=== PATIENT | male | born 1960 | race Caucasian/White ===

== ENCOUNTER → 2016-08-23 | Outpatient (CLI) | payer OTHER ==
[~2016-08-23] MED LIST: LEVE500T PO; NEOM-25 EXT; PRAV80TA PO; TRAM-10 PO
--- NOTE | 2016-08-23 11:24 | DIAGNOSTIC IMAGING REPORT ---
LEFT SHOULDER MIN 2 VIEWS ROUTINE CLINICAL HISTORY: SHOULDER PAIN TRAUMA COMPARISON: None. DISCUSSION: No fractures or dislocations of the proximal left humerus are visualized. There is a comminuted fracture of the left clavicle at the junction of the middle and distal one third. The distal fragment is inferior displaced by one full shaft width. IMPRESSION: 1. Acute comminuted left clavicular fracture at the junction of the middle and distal one third 2. No fractures or dislocations the proximal left humerus Electronically signed by: Madhu Chávez M.D. 08/23/2016 11:22 AM Dictated Date/Time: 08/23/2016 11:21 AM
== END | disposition home or self-care (01) ==
LOC: C.RAD1850 11:04
PROVIDERS: ATTEND Family Medicine
DX: S42.022A Displaced fracture of shaft of left clavicle, initial encounter for closed fracture (principal); X58.XXXA Exposure to other specified factors, initial encounter

== ENCOUNTER → 2016-09-02 | Outpatient (CLI) | payer OTHER | END | disposition home or self-care (01) | LOC: C.RDSM 13:21 | PROVIDERS: ATTEND Physical Medicine & Rehabilitation Sports Medicine | DX: S42.009A Fracture of unspecified part of unspecified clavicle, initial encounter for closed fracture (principal); X58.XXXA Exposure to other specified factors, initial encounter ==

== ENCOUNTER → 2016-10-11 | Outpatient (CLI) | payer OTHER | END | disposition home or self-care (01) | LOC: C.RDSM 13:24 | PROVIDERS: ATTEND Physical Medicine & Rehabilitation Sports Medicine | DX: S42.025 Nondisplaced fracture of shaft of left clavicle (principal); X58.XXXA Exposure to other specified factors, initial encounter ==